=== PATIENT | male | born 1940 | race Caucasian/White ===

== ENCOUNTER 2016-09-11 05:09 | Day surgery (SDC) | payer MEDICARE, OTHER ==
[2016-09-09 10:53] LABS: HEMATOCRIT 41.3 % (42.0-54.0); HEMOGLOBIN 13.4 g/dL (13.5-17.5); MCH 31.5 pg (26.0-34.0); MCHC 32.4 g/dL (31.0-37.0); MCV 97.2 fL (80.0-100.0); MEAN PLATELET VOLUME 9.5 fL (7.4-10.4); RBC 4.25 10x6/uL (4.20-6.10); RDW 13.3 % (11.5-14.5); WBC 7.5 10x3/uL (4.8-10.8)
[2016-09-09 11:05] LABS: CALC OSMOLALITY 281 mosm/kg (275-300); CALCIUM 9.1 mg/dL (8.5-10.1); CHLORIDE - SERUM 106 mmol/L (98-107); CREATININE - SERUM 0.8 mg/dL (0.6-1.3); GLUCOSE 109 mg/dL (74-106); POTASSIUM - SERUM 4.3 mmol/L (3.5-5.1); SODIUM 141 mmol/L (136-145); UREA NITROGEN 13 mg/dL (7-18); eGFR NON AFRICAN AMERICAN > 90 mL/min (90-120)
[~2016-09-11] VITALS: Ht 177.8 cm; Wt 95.3 kg
--- NOTE | ~2016-09-11 | HP ---
PATIENT: KAYLYNN TREJO MEDICAL RECORD: [id number] ACCOUNT: [id number] LOCATION:NIR : 42 ADMISSION DATE: 09/11/16 HISTORY AND PHYSICAL EXAMINATION CHIEF COMPLAINT: Hernia and history of colon polyps. HISTORY OF PRESENT ILLNESS: I have personally reviewed the patient's pathology. The patient has a number of colon polyps that were removed previously. Due to the number of colon polyps that were removed and the fact that he has had regrowth of polyps, this puts him into a category where there are complex polyps and he requires more intense surveillance endoscopies than a person with routine colon polyps and a history of routine polyps. The patient also has a reducible umbilical hernia. Planned for laparoscopic umbilical hernia repair with mesh. Risks, possible complications and alternatives to procedure were explained to the patient. He elects to proceed. PAST MEDICAL AND SURGICAL HISTORY: Coronary artery disease, atrial fibrillation, angina, history of pacemaker, myocardial infarction in 2002, noninsulin-dependent diabetes mellitus, diet controlled; gastroesophageal reflux, arthritis, history of colonoscopies and history of colon polyps. SOCIAL HISTORY: Nonsmoker. HOME MEDICATIONS: Neurontin, hydrocodone and Glucophage. ALLERGIES: No known drug allergies. REVIEW OF SYSTEMS: Negative for thyroid problems or hepatitis. Negative for CVA or seizures. The review of systems is negative other than as described above. PHYSICAL EXAMINATION: GENERAL: The patient does not appear acutely ill, does not appear chronically ill. VITAL SIGNS: Reviewed. HEAD: External ears appear normal. EYES: Extraocular movements are intact. NECK: Trachea is midline. CHEST: No intercostal retractions. CARDIOVASCULAR: Irregular rate and rhythm. IMPRESSION: 1. Reducible umbilical hernia, symptomatic. 2. History of complex colon polyps due to their number and the fact that there has been regrowth in the past. PLAN: Colonoscopy with argon plasma evp head of smg [employer] experience strategy. Laparoscopic umbilical hernia repair with mesh, possible open procedure. TRANSINT:[id number] Voice Confirmation ID: [id number] DOCUMENT ID: [id number] HISTORY AND PHYSICAL [id number] KAYLYNN TREJO SCOTT PIRES MD CC: JOHN PARADA MD, MARGARITA PEDROZA MD and WILLIAN ARRIETA [id number] DICTATION DATE: 09/11/16 1051 WATER SERVICE SUPERVISOR: 09/11/16 1638 [facility] 09/11/16 [facility] [address] [facility] [place] [address]
--- NOTE | ~2016-09-11 | OP ---
PATIENT NAME: KAYLYNN TREJO MEDICAL RECORD: [id number] :42 LOCATION:NIR ADMISSION DATE: SURGEON: MARLO PIRES MD DATE OF OPERATION: 09/11/2016 PREOPERATIVE DIAGNOSES: 1. Symptomatic reducible umbilical hernia. 2. History of complex colon polyps, which are complex due to number, as well as the fact that there has been regrowth of the polyp, particularly at the proximal transverse colon. POSTOPERATIVE DIAGNOSES: 1. Incarcerated symptomatic umbilical hernia. 2. History of complex colon polyps due to the regrowth in their number. I noted no regrowth of any polyps in doing this endoscopy. I did note three polyps, 2 of which were flat and only seen on narrow band imaging. The sessile polyp was a 7-mm polyp. The flat polyps were 1.5 cm and 1.3 cm. 3. Arteriovenous malformation of the cecum. PROCEDURE: 1. Laparoscopic incarcerated umbilical hernia repair with Ventralight ST mesh utilizing the [employer] PS positioning system. 2. Total colonoscopy to cecum. 3. Argon plasma coagulation, ablation of an arteriovenous malformation of the cecum. 4. Hot biopsy forceps polypectomies times 3. SURGEON: Marlo Pires MD TEST DESK SUPERVISOR: None. BLOOD LOSS: Minimal. ANESTHESIA: General. COMPLICATIONS: None. The risks, possible complications and alternatives to procedure were explained to the patient. He elects to proceed. OPERATIVE COURSE: The patient was conveyed to the operating room electively on 09/11/2016. General anesthesia was induced by the anesthesia staff. The abdomen was sterilely prepped and draped. A transverse incision was accomplished in the left upper quadrant. A Veress needle was inserted. CO2 insufflation was begun. Once a sufficient pneumoperitoneum had been achieved, a 12-mm trocar was inserted through the incision in the left upper quadrant. Under direct internal vision utilizing a television camera, a 5-mm trocar was inserted in the left side of the abdomen. Two 5-mm trocars were inserted in the right side of the abdomen. During insertion of the Veress needle and all trocars, there appeared to have been no injury to the bowels, any intraperitoneal or retroperitoneal structures. Utilizing the Harmonic scalpel, a prevesicular flap was created. I then dissected away some preperitoneal fat from around the hernia defect. I took down the incarcerated contents, which included only omentum. The omentum was OPERATIVE REPORT [id number] KAYLYNN TREJO removed in its entirety. I took down the falciform ligament with the Harmonic scalpel. I then took down some of the anterior portion of the triangular ligament of the liver with the Harmonic scalpel. I rolled up a Ventralight ST mesh. I advanced down through the 12-mm trocar. I then unrolled it. A small skin incision was accomplished just cephalad to the umbilical skin. I advanced a laparoscopic grasper down through the skin incision and through the hernia defect. I grasped the tubing to the positioning system and brought out through the anterior abdominal wall. I cut the tubing and inflated the positioning device. Once it was satisfactorily placed, I utilized 2 different factors including the SorbaFix Tacker, as well as the OptiFix to perform the herniorrhaphy. I removed the [employer] PS positioning system. It was removed in its entirety. I irrigated and aspirated. There was no bleeding. All trocars were removed and the abdomen was desufflated. Utilizing 0 Vicryl suture, I closed the fascia at the left upper quadrant trocar site. The skin incisions were closed with interrupted 3-0 Vicryls except at the umbilicus where a 4 Vicryl Rapide was utilized. Sterile dressings were applied. The abdominal binder was then applied. I then went about performing a colonoscopy. The patient was placed in the Carreon position. A digital rectal examination was performed. Dr. Talbot have seen the patient in the past for prostate nodules. A colonoscope was inserted through the anus. It was easily advanced to the cecum. The prep was adequate. I slowly withdrew the endoscope. I dragged the folds. The pullback was greater than 18-minute pullback. There was no arteriovenous malformation of the cecum. This was ablated utilizing the argon plasma cook helper vegetable utilizing the right colon setting in the forced mode. I continued to withdraw the endoscope. I saw no regrowth of any polypoid tissue. Normal imaging as well as narrow band imaging was utilized. The narrow band imaging was the only way to identify the flat polyps, which were removed utilizing the hot biopsy forceps polypectomy technique. An additional third polyp was noted utilizing a normal imaging and this was removed utilizing the hot biopsy forceps polypectomy technique. I withdrew into the rectum. A retroflexed views was obtained in the rectum. I then unretroflexed the scope and removed it under direct vision. The patient was then extubated and conveyed to post-anesthesia care unit where he was in stable condition. I will see him in the office in 2-3 weeks. My plan will be for his next colonoscopy to occur in 3 years in the GI lab by me under TIVA anesthesia. TRANSINT:[id number] Voice Confirmation ID: [id number] DOCUMENT ID: [id number] OPERATIVE REPORT [id number] KAYLYNN TREJO ROBERT MD CC: [id number] DICTATION DATE: 09/11/16 1100 NURSE ORTHO: 09/11/162136 [facility] 09/11/16 [facility] [address] [place] [address]
[~2016-09-11 05:09] MED LIST: AMBIEN10 MG PO; CYMBALTA20 MG PO; GLUCOPHAGE500 MG PO; HYDROCODONE-APA1 TAB PO; K-TAB10 MEQ PO; LASIX20 MG PO; NEURONTIN800 MG PO; ROXICODONE30 MG PO
[2016-09-11 06:30] VITALS: BP 120/66; Ht 177.8 cm; Wt 95.3 kg
--- NOTE | 2016-09-11 19:05 | NUR ---
1445--PT VOIDS, IV DC'D. JACI COOK 1500--DISCHARGE INSTRUCTIONS GIVEN, PT VERBALIZES UNDERSTANDING. PT OFF UNIT VIA WC. JACI COOK
== END 2016-09-11 15:00 | disposition home or self-care (01) ==
LOC: D.PAN 05:09
PROVIDERS: Anesthesiology
DX: K42.0 Umbilical hernia with obstruction, without gangrene (principal); D12.3 Benign neoplasm of transverse colon; K63.5 Polyp of colon; K55.21 Angiodysplasia of colon with hemorrhage; I25.10 Atherosclerotic heart disease of native coronary artery without angina pectoris; I48.91 Unspecified atrial fibrillation; Z95.0 Presence of cardiac pacemaker; I25.2 Old myocardial infarction; E11.9 Type 2 diabetes mellitus without complications; K21.9 Gastro-esophageal reflux disease without esophagitis; M19.90 Unspecified osteoarthritis, unspecified site; Z79.84 Long term (current) use of oral hypoglycemic drugs; Z79.891 Long term (current) use of opiate analgesic